=== PATIENT | male | born 1970 | race Two or more races ===

== ENCOUNTER → 2021-07-16 | Outpatient (CLI) | payer MEDICAID | END | disposition home or self-care (01) | LOC: LAB 13:09 | PROVIDERS: ATTEND Internal Medicine Pulmonary Disease | DX: J44.9 Chronic obstructive pulmonary disease, unspecified (principal) | CPT/HCPCS: 82103 ==

== ENCOUNTER → 2022-12-21 | Outpatient (CLI) | payer MEDICAID ==
[2022-12-21 08:38] LABS: Basophils # (auto) 0.1 10 ^3/uL (0-0.2); Eosinophils # (auto) 0.5 10 ^3/uL (0-0.8); Eosinophils % (auto) 5.2 % (0.0-7.0); Nucleated Red Blood Cells % 0.4 %
[2022-12-21 08:39] LABS: Basophils % (auto) 0.7 % (0.0-2.0); Hematocrit 42.2 % (41.0-53.0); Lymphocytes # (auto) 3.1 10 ^3/uL (0.4-5.4); Lymphocytes % (auto) 35.5 % (10.0-50.0); Mean Corpuscular Hemoglobin 26.7 pg (28.0-32.0); Mean Corpuscular Hgb Conc. 33.2 g/dL (32.0-36.0); Mean Corpuscular Volume 80.4 fL (80.0-100.0); Monocytes # (auto) 0.5 10 ^3/uL (0-1.3); Monocytes % (auto) 6.1 % (0.0-12.0); Neutrophils # (auto) 4.6 10 ^3/uL (1.6-8.6); Neutrophils % (auto) 52.5 % (37.0-80.0); Red Blood Cells 5.25 10^6/uL (4.5-5.90); Red Cell Distribution Width 14.8 % (11.8-14.3); White Blood Cell 8.8 10^3/uL (4.4-10.8)
[2022-12-21 09:00] LABS: Potassium 3.9 mmol/L (3.5-5.1)
[2022-12-21 09:12] LABS: Bilirubin, Total 0.3 mg/dL (0.2-1.0); Calcium 8.8 mg/dL (8.5-10.1); Total Protein 7.2 g/dL (6.4-8.2)
== END | disposition home or self-care (01) ==
LOC: LAB 08:21
PROVIDERS: ATTEND Student in an Organized Health Care Education/Training Program
DX: R73.03 Prediabetes (principal); J44.9 Chronic obstructive pulmonary disease, unspecified
CPT/HCPCS: 36415; 80053; 80061; 83036; 85025

== ENCOUNTER → 2023-03-01 | Outpatient (CLI) | payer MEDICAID ==
[2023-03-01 10:28] LABS: Free T4 (Free Thyroxine) 0.82 ng/dL (0.89-1.76); Prostate Specific Antigen 1.22 ng/mL (0.0-4.0)
[2023-03-01 13:46] LABS: Urine Bacteria NONE SEEN /hpf (None Seen); Urine Blood Negative /uL (Negative); Urine Mucus FEW (None Seen); Urine Specific Gravity 1.024 (1.001-1.035); Urine WBC 4 /hpf (0 - 3)
== END | disposition home or self-care (01) ==
LOC: LAB 09:05
PROVIDERS: ATTEND Student in an Organized Health Care Education/Training Program
DX: Z12.5 Encounter for screening for malignant neoplasm of prostate (principal); N39.43 Post-void dribbling
CPT/HCPCS: 36415; 81001; 84153; 84439; 84443; 87086

== ENCOUNTER 2025-02-10 10:27 | Outpatient (CLI) | payer MEDICAID | END 2025-02-10 17:00 | disposition home or self-care (01) | LOC: RT 10:27 | PROVIDERS: ATTEND Internal Medicine Pulmonary Disease | DX: J45.50 Severe persistent asthma, uncomplicated (principal); R06.09 Other forms of dyspnea; R05.9 Cough, unspecified; Z79.51 Long term (current) use of inhaled steroids; Z87.891 Personal history of nicotine dependence | CPT/HCPCS: 94060; 94727; 94729 ==

== ENCOUNTER 2025-03-31 07:26 | Outpatient (CLI) | payer MEDICAID ==
[2025-03-31 08:33] LABS: Hematocrit 39.3 % (41.0-53.0); Hemoglobin 12.8 g/dL (13.5-17.5); Mean Corpuscular Hemoglobin 24.9 pg (28.0-32.0); Mean Corpuscular Volume 76.4 fL (80.0-100.0); Nucleated Red Blood Cells % 0.2 %
[2025-03-31 09:27] LABS: Alanine Aminotransferase 31 U/L (7-40); Albumin 4.0 g/dL (3.2-4.8); Alkaline Phosphatase 91 U/L (46-116); Anion Gap 9 (5-15); BUN/Creatinine Ratio 15.7 (10.0-20.0); Blood Urea Nitrogen 17 mg/dL (9-23); Calcium 9.8 mg/dL (8.7-10.4); Carbon Dioxide 29 mmol/L (20-31); Chloride 105 mmol/L (98-107); Cholesterol 139 mg/dL (< 200); HDL Cholesterol 44 mg/dL (40-59); Potassium 3.7 mmol/L (3.5-5.1); Sodium 143 mmol/L (136-145); Total Protein 6.7 g/dL (5.7-8.2); Triglycerides 81 mg/dL (< 150)
[2025-03-31 09:39] LABS: Bilirubin, Total 0.3 mg/dL (0.2-1.0); Glucose 123 mg/dL (74-106)
[2025-03-31 10:21] LABS: Free T4 (Free Thyroxine) 0.84 ng/dL (0.89-1.76)
[2025-04-01 08:07] LABS: Prostate Specific Antigen 0.8 ng/mL (0.0-4.0)
== END 2025-03-31 17:00 | disposition home or self-care (01) ==
LOC: LAB 07:26
PROVIDERS: ATTEND Student in an Organized Health Care Education/Training Program
DX: Z12.5 Encounter for screening for malignant neoplasm of prostate (principal); R41.3 Other amnesia; R73.03 Prediabetes
CPT/HCPCS: 36415; 80053; 80061; 82607; 83036; 84154; 84439; 84443; 85025; 86780

== ENCOUNTER 2025-07-07 11:11 | Day surgery (SDC) | payer MEDICAID ==
[2025-07-03 15:19] LABS: Hematocrit 36.7 % (41.0-53.0); Hemoglobin 11.9 g/dL (13.5-17.5); INR 0.97 (0.9-1.15); Mean Corpuscular Hemoglobin 24.5 pg (28.0-32.0); Mean Corpuscular Volume 75.5 fL (80.0-100.0); Nucleated Red Blood Cells % 0.1 %; Partial Thromboplastin Time 25.0 SEC (24.5-34.5); Prothrombin Time 10.3 sec (9.3-11.8)
[2025-07-03 15:35] LABS: Alanine Aminotransferase 27 U/L (7-40); Albumin 3.8 g/dL (3.2-4.8); Alkaline Phosphatase 103 U/L (46-116); Anion Gap 10 (5-15); BUN/Creatinine Ratio 15.5 (10.0-20.0); Blood Urea Nitrogen 17 mg/dL (9-23); Calcium 8.9 mg/dL (8.7-10.4); Carbon Dioxide 29 mmol/L (20-31); Chloride 103 mmol/L (98-107); Potassium 3.6 mmol/L (3.5-5.1); Sodium 142 mmol/L (136-145); Total Protein 6.7 g/dL (5.7-8.2)
[2025-07-03 15:37] LABS: Bilirubin, Total 0.2 mg/dL (0.2-1.0); Glucose 142 mg/dL (74-106)
[2025-07-04 16:15] LABS: Urine Protein, UAD Negative (Negative)
[~2025-07-07] VITALS: Ht 172.7 cm; Wt 140.6 kg
[~2025-07-07 11:11] MED LIST: BUDE1AER4 IN; FLUT50AE5 IN; IBUP-1454 PO; PANT40TA2 PO
[2025-07-07] MEDS ORDERED: PROPOFOL 10 MG/ML 20 ML IV ONE (12:56)
[2025-07-07] MEDS ORDERED: GLYCOPYRROLATE 0.2 MG/ML 1ML VIAL ONE (13:29)
[2025-07-07] MEDS ORDERED: KETAMINE 50mg/ML 1ml syringe ONE (13:29)
[2025-07-07] MEDS ORDERED: MIDAZOLAM HCL 2MG/2ML 2ml VIAL (1mg/ml) ONE (13:29)
[2025-07-07] MEDS ORDERED: ONDANSETRON HCL 4 MG/2 ML VIAL ONE (13:33)
[2025-07-07 13:49] VITALS: RESP 11; TEMP 97.6; O2SAT 95
--- NOTE | 2025-07-07 13:52 | DVHOP2 ---
Operative Report DATE OF OPERATION: 07/07/25 PROCEDURE: Colonoscopy with hot snare polypectomy. PREOPERATIVE INDICATION: The patient is a 55 -year-old male undergoing colonoscopy for colon cancer screening with positive stool Cologuard POSTOPERATIVE DIAGNOSES: 1. 2 cm sigmoid polyp on a short stalk was seen and removed via hot snare polypectomy completely from about 30 cm above the anal verge 2. Trace to 1+ internal hemorrhoids otherwise completely normal colonoscopy examination up to the cecum and terminal ileum PROCEDURE PERFORMED BY: Justin Sequeira M.D. SCOPE: Olympus videocolonoscope. ASA CLASS: 2 PREOPERATIVE MEDICATIONS: Dr. Clay Peres PROCEDURE IN DETAIL: After obtaining an informed consent, the patient was placed on left lateral decubitus position. He was then sedated with the above medications. A rectal examination was performed that was normal. The colonoscope was then passed through the anus into the rectosigmoid and through the descending, transverse, and ascending colon up to the cecum with visualization of the appendiceal orifice, base of the cecum and the ileocecal valve. The colonoscope was then withdrawn. The distal 5-10 cm of the terminal ileum were normal No masses or colitis were seen. There was no clear-cut diverticular disease. There was a 2 cm sigmoid polyp on a short stalk seen at 30 cm above the anal verge This was removed completely via hot snare polypectomy and the specimen was retrieved On retroflexion and straight on view he had trace to 1+ internal hemorrhoids The patient tolerated the procedure well without difficulty. WITHDRAWAL TIME: 8 minutes QUALITY OF THE PREP: Andrews Bowel Prep score: 9. COMPLICATIONS : None SPECIMENS: Sigmoid colon polyp DISPOSITION: Stable D/C to home PLAN: 1. Repeat colonoscopy base on biopsy result likely in 2-3 years 2. Resume GI soft diet advance as tolerated 3. Increase fluid and fiber intake, local anorectal hemorrhoidal care 4. Hold aspirin and blood thinners for 5-7 days JUSTIN SEQUEIRA MD Jul 07, 2025 13:52
[2025-07-07] MEDS ORDERED: HYDROmorphone HCL 2 MG/ML VL/or syr IV PRN (14:00)
[2025-07-07 14:15] VITALS: BP 130/96; PULSE 89; RESP 12; O2SAT 96
== END 2025-07-07 14:29 | disposition home or self-care (01) ==
LOC: GI 11:11
PROVIDERS: ATTEND Internal Medicine Gastroenterology
DX: R19.5 Other fecal abnormalities (principal); D12.5 Benign neoplasm of sigmoid colon; K63.5 Polyp of colon; K21.9 Gastro-esophageal reflux disease without esophagitis; D64.9 Anemia, unspecified; J44.9 Chronic obstructive pulmonary disease, unspecified; G47.33 Obstructive sleep apnea (adult) (pediatric); M51.369 Other intervertebral disc degeneration, lumbar region without mention of lumbar back pain or lower extremity pain; Z79.899 Other long term (current) drug therapy; Z98.890 Other specified postprocedural states; Z88.0 Allergy status to penicillin
CPT/HCPCS: 36415; 45385; 80053; 81001; 85025; 85610; 85730; 88305; J2250; J2405; J2704; J7030